=== PATIENT | female | born 1990 | race Two or more races ===

== ENCOUNTER 2023-03-28 19:13 | Outpatient (REF) | payer OTHER, SELFPAY ==
[2023-04-02 22:07] LABS: Age Gdln ACOG Testing Note (.); HPV Aptima Negative (Negative); IGP, Aptima HPV, rfx 16/18,45 Note (.)
== END 2023-03-28 19:14 | disposition home or self-care (01) ==
LOC: LAB 19:13
PROVIDERS: PCP Family Medicine; Visit Provider Obstetrics & Gynecology
DX: Z01.419 Encounter for gynecological examination (general) (routine) without abnormal findings (principal)
CPT/HCPCS: 87624; G0145

== ENCOUNTER 2024-04-08 19:25 | Outpatient (REF) | payer OTHER, SELFPAY | END 2024-04-08 19:26 | disposition home or self-care (01) | LOC: LAB 19:25 | PROVIDERS: PCP Family Medicine; Visit Provider Obstetrics & Gynecology | DX: Z01.419 Encounter for gynecological examination (general) (routine) without abnormal findings (principal) | CPT/HCPCS: 87624; 88175 ==

== ENCOUNTER 2025-05-27 20:12 | Outpatient (REF) | payer OTHER, SELFPAY ==
--- OUTSIDE RECORDS SUMMARY | 2025-05-27 20:16 | XMS_ITS | CCD ---
Author Organization [facility] Care Team Providers Care Director [employer] Name Role Phone SHEELA, DR CORDELL Crystal Attending Unavailable NADERER, DR CORDELL Crystal Consulting Unavailable NADERER, DR CORDELL Crystal Primary Care Unavailable DASIAERER, DR CORDELL Crystal Admitting Unavailable ALEXANDRA, DR BLUE Primary Care Unavailable ALEXANDRA, DR BLUE Admitting Unavailable ALEXANDRA, DR BLUE Attending Unavailable ALEXANDRA, DR BLUE Consulting Unavailable Marcy Romo Unavailable MIRZA MORRIS Attending Unavailable BRENNON PISANO Attending Unavailable KHORSAND MO, DEBRA Referring Unavailabl e KHORSAND MO, DEBRA Primary Care Unavailabl e ALIYA, BRENNON Attending Unavailable KHORSAND MO, DEBRA Referring Unavailabl e KHORSAND MO, DEBRA Primary Care Unavailabl e ALIYA, BRENNON Attending Unavailable KHORSAND MO, DEBRA Referring Unavailabl e KHORSAND MO, DEBRA Primary Care Unavailabl e ALIYA, BRENNON Attending Unavailable KHORSAND MO, DEBRA Referring Unavailabl e KHORSAND MO, DEBRA Primary Care Unavailabl e ALIYA BRENNON Attending Unavailable KHORSAND MO, DEBRA Referring Unavailabl e KHORSAND MO, DEBRA Primary Care Unavailabl e PISANO, BRENNON Attending Unavailable KHORSAND MO, DEBRA Referring Unavailabl e KHORSAND MO, DEBRA Primary Care Unavailabl e ALIYA, BRENNON Attending Unavailable KHORSAND MO, DEBRA Referring Unavailabl e KHORSAND MO, DEBRA Primary Care Unavailabl e ALIYA, BRENNON Attending Unavailable KHORSAND MO, DEBRA Referring Unavailabl e KHORSAND MO, DEBRA Primary Care Unavailabl e ALIYA, BRENNON Attending Unavailable KHORSAND MO, DEBRA Referring Unavailabl e KHORSAND MO, DEBRA Primary Care Unavailabl e ALIYA, BRENNON Attending Unavailable KHORSAND MO, DEBRA Referring Unavailabl e KHORSAND MO, DEBRA Primary Care Unavailabl e KHORSAND MO, DEBRA Primary Care Unavailabl e SETH GOTTLIEB Attending Unavailable ALIYA, BRENNON Attending Unavailable KHCLARKEAND MO, DEBRA Referring Unavailabl e KHORSAND MO, DEBRA Primary Care Unavailskyla e BRENNON PISANO Attending Unavailable KHORSAND MO, DEBRA Referring Unavailabl e KHORSAND MO, DEBRA Primary Care UnavailCordell Gomes MD Primary Care Provider Medications Current Medications Medication Drug Class(es) Dates Sig (Normalized) Sig (Original) amoxicillin 875 mg / clavulanate 125 mg oral tablet (1 source) Penicillin-class Antibacterial Start: 09-06-2023 take 1 tablet by mouth every twelve hours Amoxicillin-Pot Clavulanate 875-125 MG 1 tablet Orally every 12 hrs for 10 day(s) Sep, Active predniSONE 20 mg oral tablet (1 source) Start: 09-06-2023 take 1 tablet by mouth every twelve hours prednisone 20 MG 1 tablet Orally BID for 5 Sep, Active Completed/Discontinued Medications Medication Drug Class(es) Dates Sig (Normalized) Sig (Original) sulfamethoxazole 800 mg / trimethoprim 160 mg oral tablet (1 source) Dihydrofolate Reductase Inhibitor Antibacterial, Sulfonamide Antimicrobial Start: 07-16-2017 take 1 tablet by mouth every twelve hours Bactrim DS 800-160 MG 1 tablet Orally Twice a day for 10 day(s) Jul, Not-Taking/PRN Problems Problem Classification Problem Date Documented Date Episodic/Chronic Immunizations and screening for infectious disease (1 source) Encounter for screening for human papillomavirus (HPV); Translations: [ENC SCREENING HUMAN PAPILLOMAVIRUS] Onset: 03-28-2022 Episodic Nonspecific chest pain (3 sources) Other chest pain; Translations: [Chest pain, unspecified] Onset: 03-30-2025 Episodic Other screening for suspected conditions (not mental disorders or infectious disease) (4 sources) Encounter for screening for malignant neoplasm of cervix; Translations: [ENC SCREENING MALIG NEOPLASM CERV] Onset: 03-27-2022 Episodic Other upper respiratory infections (1 source) Acute maxillary sinusitis, unspecified Episodic Results Test Name Value Interpretation Reference Range Facility [facility] 03-30-2025 aPTT Coag (Bld) [Time] 28 s Normal 26-37 [facility] Comment on above: Performed By: #### P TT #### [facility] ([address] [address] VIR B-TYPE NATRIURETIC PEPTIDEon 03-30-2025 Natriuretic peptide B (Bld) [Mass/Vol] 28 pg/mL Normal <=100 [facility] Comment on above: Performed By: #### C BCA #### [facility] ([address] [address] VIR CBC WITH AUTO DIFFERENTIALon 03-30-2025 BASOPHILS ABSOLUTE COUNT (10*3/UL) BY AUTOMATED COUNT 0.1 10*3/uL Normal 0.0-0.2 [facility] Comment on above: Performed By: #### C BCA #### [facility] ([address] [address] VIR BASOPHILS RELATIVE PERCENT BY AUTOMATED COUNT 0.9 % Normal [facility] Comment on above: Performed By: #### C BCA #### [facility] ([address] [address] VIR CELLAVISION DIFFERENTIAL TYPE AUTOMATED DIFFERENTIAL Normal [facility] Comment on above: Performed By: #### C BCA #### [facility] ([address] [address] VIR Eosinophils (Bld) [#/Vol] 0.2 10*3/uL Normal 0.0-0.4 [facility] Comment on above: Performed By: #### C BCA #### [facility] ([address] [address] VIR EOSINOPHILS RELATIVE PERCENT BY AUTOMATED COUNT 1.9 % Normal [facility] Comment on above: Performed By: #### C BCA #### [facility] ([address] [address] VIR Erythrocyte distribution width (RBC) [Ratio] 13.4 % Normal 11.5-15 [facility] Comment on above: Performed By: #### C BCA #### [facility] ([address] [address] VIR Hematocrit (Bld) [Volume fraction] 41.1 % Normal 35-47 [facility] Comment on above: Performed By: #### C BCA #### [facility] ([address] [address] VIR Hemoglobin (Bld) [Mass/Vol] 14.0 g/dL Normal 11.7-15.5 [facility] Comment on above: Performed By: #### C BCA #### [facility] ([address] [address] VIR LYMPHOCYTES ABSOLUTE COUNT (10*3/UL) BY AUTOMATED COUNT 2.5 10*3/uL Normal 1.0-3.5 [facility] Comment on above: Performed By: #### C BCA #### [facility] ([address] [address] VIR LYMPHOCYTES RELATIVE PERCENT BY AUTOMATED COUNT 28.5 % Normal [facility] Comment on above: Performed By: #### C BCA #### [facility] ([address] [address] VIR MCH (RBC) [Entitic mass] 32.0 pg Normal 27-34 [facility] Comment on above: Performed By: #### C BCA #### [facility] ([address] [address] VIR MCHC (RBC) [Mass/Vol] 34.0 g/dL Normal 32-36 [facility] Comment on above: Performed By: #### C BCA #### [facility] ([address] [address] VIR MCV (RBC) [Entitic vol] 94 fL Normal 80-100 [facility] Comment on above: Performed By: #### C BCA #### [facility] ([address] [address] VIR MONOCYTES ABSOLUTE COUNT (10*3/UL) BY AUTOMATED COUNT 0.4 10*3/uL Normal 0.0-0.9 [facility] Comment on above: Performed By: #### C BCA #### [facility] ([address] [address] VIR MONOCYTES RELATIVE PERCENT BY AUTOMATED COUNT 5.1 % Normal [facility] Comment on above: Performed By: #### C BCA #### [facility] ([address] [address] VIR NEUTROPHILS ABSOLUTE COUNT BY AUTOMATED COUNT 5.6 10*3/uL Normal 1.5-6.6 [facility] Comment on above: Performed By: #### C BCA #### [facility] ([address] [address] VIR NEUTROPHILS RELATIVE PERCENT BY AUTOMATED COUNT 63.6 % Normal [facility] Comment on above: Performed By: #### C BCA #### [facility] ([address] [address] VIR Platelet mean volume (Bld) [Entitic vol] 11.1 fL Normal 7-12 [facility] Comment on above: Performed By: #### C BCA #### [facility] ([address] [address] VIR Platelets (Bld) [#/Vol] 276 10*3/uL Normal 150-450 [facility] Comment on above: Performed By: #### C BCA #### [facility] ([address] [address] VIR RBC COUNT 4.37 X10E12/L Normal 3.8-5.2 [facility] Comment on above: Performed By: #### C BCA #### [facility] ([facility]) [address] [place] [address] VIR WBC (Bld) [#/Vol] 8.9 10*3/uL Normal 4-11 [facility] Comment on above: Performed By: #### C BCA #### [facility] ([address] [place] [address] VIR COMPREHENSIVE METABOLIC PANE Brandon 03-30-2025 Albumin [Mass/Vol] 4.3 g/dL Normal 3.2-5.3 [facility] Comment on above: Performed By: #### C MP #### [facility] ([facility]) [facility] [place] [address] VIR ALP [Catalytic activity/Vol] 60 U/L Normal 39-130 [facility] Comment on above: Performed By: #### C MP #### [facility] ([address] [place] [address] VIR ALT [Catalytic activity/Vol] 21 U/L Normal <=31 [facility] Comment on above: Performed By: #### C MP #### [facility] ([address] [place] [address] VIR Anion gap [Moles/Vol] 6 mmol/L Normal 5-15 [facility] Comment on above: Performed By: #### C MP #### [facility] ([address] [place] [address] VIR AST [Catalytic activity/Vol] 18 U/L Normal <=41 [facility] Comment on above: Performed By: #### C MP #### [facility] ([place] [address] [place] [address] VIR Bilirubin [Mass/Vol] 0.4 mg/dL Normal 0.3-1.2 [facility] Comment on above: Performed By: #### C MP #### [facility] ([facility]) [address] [place] [address] [place] [address] VIR Calcium [Mass/Vol] 8.7 mg/dL Normal 8.5-10.5 [facility] Comment on above: Performed By: #### C MP #### [facility] ([address] [place] [address] VIR Chloride [Moles/Vol] 107 mmol/L Normal 98-109 [facility] Comment on above: Performed By: #### C MP #### [facility] ([address] [place] [address] VIR CO2 [Moles/Vol] 23 mmol/L Normal 22-32 [facility] Comment on above: Performed By: #### C MP #### [facility] ([address] [place] [address] VIR Creatinine [Mass/Vol] 0.52 mg/dL Normal 0.40-1.00 [facility] Comment on above: Result Comment: METH OD TRACEABLE TO IDMS STANDARD Performed By: #### C MP #### [facility] ([address] [place] [address] VIR EGFR (CKD-EPI) NON-RACE DEPENDENT >^90 Normal >=60 [facility] Comment on above: Result Comment: eGFR not reported due to non-numeric value for Creatinine. Reported eGFR is based on the CKD-EPI 2021 equation that does not use a race coefficient. Performed By: #### C MP #### [facility] ([address] [place] [address] VIR Glucose [Mass/Vol] 126 mg/dL High 65-99 [facility] Comment on above: Performed By: #### C MP #### [facility] ([address] [place] [address] VIR Potassium [Moles/Vol] 3.9 mmol/L Normal 3.5-5.0 [facility] Comment on above: Performed By: #### C MP #### [facility] ([address] [place] [address] VIR Protein [Mass/Vol] 7.3 g/dL Normal 6.0-8.0 [facility] Comment on above: Performed By: #### C MP #### [facility] ([address] [place] [address] VIR Sodium [Moles/Vol] 136 mmol/L Normal 134-146 [facility] Comment on above: Performed By: #### C MP #### [facility] ([address] [place] [address] VIR Urea nitrogen [Mass/Vol] 11 mg/dL Normal 5-23 [facility] Comment on above: Performed By: #### C MP #### [facility] ([address] [place] [address] VIR D-DIMERon 03-30-2025 D DIMER <^150 Normal 1-255 [facility] Comment on above: Result Comment: Resu lts <255 ng/mL DDU: The presensence of a VTE can safely be excluded with a negative D-Dimer result and Wells score. A negative result doesn't exclude the possibility of DIC. The test should be repeated along with other diagnostic tests if the patient's symptoms persist or worsen. Performed By: #### D DMR #### [facility] ([address] [place] [address] VIR LIPASEon 03-30-2025 Lipase [Catalytic activity/Vol] 30 U/L Normal 17-40 [facility] Comment on above: Performed By: #### L IPA #### [facility] ([address] [place] [address] VIR MAGNESIUMon 03-30-2025 Magnesium [Mass/Vol] 2.0 mg/dL Normal 1.8-2.6 [facility] Comment on above: Performed By: #### M G #### [facility] ([address] [place] [address] VIR POCT NURSING URINE MACROSCOP IC UAon 03-30-2025 BILIRUBIN CHIOMA Negative Normal Negative [facility] Comment on above: Performed By: #### N UM #### [facility] ([address] [place] [address] VIR BLOOD/HGB CHIOMA Moderate Abnormal Negative [facility] Comment on above: Performed By: #### N UM #### [facility] ([address] [place] [address] VIR GLUCOSE CHIOMA Negative Normal Negative [facility] Comment on above: Performed By: #### N UM #### [facility] ([address] [place] [address] VIR KETONES CHIOMA Negative Normal Negative [facility] Comment on above: Performed By: #### N UM #### [facility] ([address] [place] [address] VIR LEUKOCYTE ESTERASE CHIOMA Negative Normal Negative [facility] Comment on above: Performed By: #### N UM #### [facility] ([address] [place] [address] VIR NITRITE CHIOMA Negative Normal Negative [facility] Comment on above: Performed By: #### N UM #### [facility] ([address] [place] [address] VIR PH CHIOMA 7.0 Normal 5.0, 6.0, 6.5, 7.0, 7.5, 8.0, 8.5, 5.5 [facility] Comment on above: Performed By: #### N UM #### [facility] ([address] [place] [address] VIR PROTEIN CHIOMA Negative Normal Negative [facility] Comment on above: Performed By: #### N UM #### [facility] ([address] [place] [address] VIR SPECIFIC GRAVITY CHIOMA 1.015 Normal 1.010, 1.015, 1.020, 1.025 [facility] Comment on above: Performed By: #### N UM #### [facility] ([address] [place] [address] VIR UROBILINOGEN CHIOMA 0.2 E.U./dL Normal [facility] Comment on above: Performed By: #### N UM #### [facility] ([address] [place] [address] VIR PROTIME AND INRon 03-30-2025 INR 0.9 Normal 0.9-1.2 [facility] Comment on above: Performed By: #### P INR #### [facility] ([address] [place] [address] VIR PT Coag (PPP) [Time] 10.4 s Normal 9.8-13.2 [facility] Comment on above: Performed By: #### P INR #### [facility] ([address] [place] [address] VIR TROP I, HIGH SENSITIVITY 1 H OURon 03-30-2025 TROPONIN I, HIGH SENSITIVITY <^2 Normal <16 [facility] Comment on above: Performed By: #### C BCA #### [facility] ([address] [place] [address] VIR TROPONIN I, HIGH SENSITIVITY 0 HOURon 03-30-2025 TROPONIN I, HIGH SENSITIVITY <^2 Normal <16 [facility] Comment on above: Performed By: #### T NIHS0 #### [facility] ([place] [address] [place] [address] VIR XR CHEST 1 VWon 03-30-2025 XR CHEST 1 VW XR CHEST 1 VW XR CHEST 1 VW Clinical Information: chest pain Comparison: None. IMPRESSION: * Negative chest x-ray. Finalized by Ralph Gilbert MD on 03/30/2025 10:24 AM Normal [facility] CBC AUTO DIFFon 05-30-2022 BASO # 0.1 103/ul Normal 0.0-0.1 [facility] Comment on above: Performed By: #### C BC #### [facility] [address] [address] [address] Saul Johnston Basophils/100 WBC (Bld) 0.7 % Normal 0.2-2.0 [facility] Comment on above: Performed By: #### C BC #### [facility] [address] [address] [address] Saul Johnston EO # 0.3 103/ul Normal 0.0-0.7 [facility] Comment on above: Performed By: #### C BC #### [facility] [address] [place] [address] Dr. Saul Johnston Eosinophils/100 WBC (Bld) 2.7 % Normal 0.9-7.0 [facility] Comment on above: Performed By: #### C BC #### [facility] [address] [place] [address] Dr. Saul Johnston Erythrocyte distribution width (RBC) [Ratio] 13.0 % Normal 11.0-15.0 [facility] Comment on above: Performed By: #### C BC #### [facility] [address] [place] [address] Dr. Saul Johnston Hematocrit (Bld) [Volume fraction] 41.6 % Normal 36.0-48.0 [facility] Comment on above: Performed By: #### C BC #### [facility] [address] [place] [address] Dr. Saul Johnston Hemoglobin (Bld) [Mass/Vol] 13.4 g/dL Normal 12.0-16.0 [facility] Comment on above: Performed By: #### C BC #### [facility] [address] [place] [address] Dr. Saul Jonhston IG # 0.02 10e3/ul Normal 0.00-0.03 [facility] Comment on above: Performed By: #### C BC #### [facility] [address] [place] [address] Dr. Saul Johnston IG % 0.2 % Normal 0.0-0.5 [facility] Comment on above: Performed By: #### C BC #### [facility] [address] [place] [address] Dr. Saul Johnston LYMPH # 3.6 103/ul Normal 1.2-3.8 [facility] Comment on above: Performed By: #### C BC #### [facility] [address] [place] [address] Dr. Saul Johnston Lymphocytes/100 WBC (Bld) 35.5 % Normal 20.5-60.0 [facility] Comment on above: Performed By: #### C BC #### [facility] [address] [place] [address] Dr. Saul Johnston MANUAL DIFF REQ NO Normal [facility] Comment on above: Performed By: #### C BC #### [facility] [address] [place] [address] Dr. Saul Johnston MCH (RBC) [Entitic mass] 31.3 pg Normal 26.7-34.0 [facility] Comment on above: Performed By: #### C BC #### [facility] [address] [place] [address] Dr. Saul Johnston MCHC (RBC) [Mass/Vol] 32.2 g/dL Normal 29.9-35.2 [facility] Comment on above: Performed By: #### C BC #### [facility] [address] [place] [address] Dr. Saul Johnston MCV (RBC) [Entitic vol] 97.2 fL Normal 81.0-99.0 [facility] Comment on above: Performed By: #### C BC #### [facility] [address] [place] [address] Dr. Saul Johnston MONO # 0.6 103/ul Normal 0.3-0.8 [facility] Comment on above: Performed By: #### C BC #### [facility] [address] [place] [address] Dr. Saul Johnston Monocytes/100 WBC (Bld) 5.7 % Normal 1.7-12.0 [facility] Comment on above: Performed By: #### C BC #### [facility] [address] [place] [address] Dr. Saul Johnston NEUT # 5.6 103/ul Normal 1.4-6.5 [facility] Comment on above: Performed By: #### C BC #### [facility] [address] [place] [address] Dr. Saul Johnston Neutrophils/100 WBC (Bld) 55.2 % Normal 43.0-75.0 [facility] Comment on above: Performed By: #### C BC #### [facility] [address] [place] [address] Dr. Saul Johnston Platelet mean volume (Bld) [Entitic vol] 12.9 fL Normal 9.5-13.5 [facility] Comment on above: Performed By: #### C BC #### [facility] [address] [place] [address] Dr. Saul Johnston PLT 266 103/ul Normal 150-450 [facility] Comment on above: Performed By: #### C BC #### [facility] [address] [place] [address] Dr. Saul Johnston RBC 4.28 106/ul Normal 4.20-5.40 [facility] Comment on above: Performed By: #### C BC #### [facility] [address] [place] [address] Dr. Saul Johnston WBC 10.1 103/ul Normal 4.0-11.0 [facility] Comment on above: Performed By: #### C BC #### [facility] [address] [place] [address] Dr. Saul Johnston GLYCOHEMOGLOBIN A1Con 2021 ADA RECOMMENDATION SEE BELOW Normal [facility] Comment on above: Result Comment: ADA RECOMMENDED LIMIT 4.0 - 6.0 ADA THERAPEUTIC TARGET < 7.0 ACTION SUGGESTED > 7.0 Performed By: #### A 1C #### [facility] [address] [place] [address] Dr. Saul Johnston Glucose [Mass/Vol] 120 mg/dL Normal [facility] Comment on above: Performed By: #### A 1C #### [facility] [address] [address] [address] Saul Johnston HbA1c (Bld) [Mass fraction] 5.8 % Normal 4.5-6.2 [facility] Comment on above: Performed By: #### A 1C #### [facility] [address] [place] [address] Dr. Saul Johnston LIPID PROFILEon 05-30-2022 CHOL-HDL RATIO NORM SEE BELOW Normal [facility] Comment on above: Result Comment: 3.3 - 4.4 LOW RISK 4.4 - 7.1 AVERAGE RISK 7.1 - 11.0 MODERATE RISK >11.0 HIGH RISK Performed By: #### B MP, TSH, LIVER, LIPID #### [facility] [address] [address] [address] Saul Johnston Cholesterol [Mass/Vol] 170 mg/dL Normal <=200 [facility] Comment on above: Performed By: #### B MP, TSH, LIVER, LIPID #### [facility] [address] [place] [address] Dr. Saul Johnston Cholesterol in HDL [Mass/Vol] 36 mg/dL Critically low 40-60 [facility] Comment on above: Performed By: #### B MP, TSH, LIVER, LIPID #### [facility] [address] [address] [address] Saul Johnston Cholesterol in LDL [Mass/Vol] 114.4 mg/dL Normal [facility] Comment on above: Performed By: #### B MP, TSH, LIVER, LIPID #### [facility] [address] [place] [address] Dr. Saul Johnston Cholesterol.total/Cho lesterol in HDL [Mass ratio] 4.7 {ratio} Normal [facility] Comment on above: Performed By: #### B MP, TSH, LIVER, LIPID #### [facility] [address] [address] [address] Saul Johnston HDL NORMAL > or = 60 mg/dl - LO W CARDIOVASCULAR RISK <40 mg/dl - HIGH CARDIOVASCULAR RISK Normal [facility] Comment on above: Performed By: #### B MP, TSH, LIVER, LIPID #### [facility] [address] [address] [address] Saul Johnston LDL CALC NORMAL SEE BELOW Normal [facility] Comment on above: Result Comment: <100 mg/dl OPTIMAL 100 - 129 mg/dl NEAR OR ABOVE OPTIMAL 130 - 159 mg/dl BORDERLINE HIGH 160 - 189 mg/dl HIGH >190 mg/dl VERY HIGH Performed By: #### B MP, TSH, LIVER, LIPID #### [facility] [address] [address] [address] Saul Johnston Triglyceride [Mass/Vol] 98 mg/dL Normal <=150 [facility] Comment on above: Performed By: #### B MP, TSH, LIVER, LIPID #### [facility] [address] [address] [address] Saul Johnston VLDL CALC 19.6 mg/dL Normal [facility] Comment on above: Performed By: #### B MP, TSH, LIVER, LIPID #### [facility] [address] [address] [address] Saul Johnston LIVER PROFILEon 05-30-2022 Albumin [Mass/Vol] 3.9 g/dL Normal 3.4-5.0 [facility] Comment on above: Performed By: #### B MP, TSH, LIVER, LIPID #### [facility] [address] [address] [address] Saul Johnston Albumin/Globulin [Mass ratio] 1.1 {ratio} Normal [facility] Comment on above: Performed By: #### B MP, TSH, LIVER, LIPID #### [facility] [address] [address] [address] Saul Johnston ALP [Catalytic activity/Vol] 69 U/L Normal 46-116 [facility] Comment on above: Performed By: #### B MP, TSH, LIVER, LIPID #### [facility] [address] [place] [address] Dr. Saul Johnston ALT [Catalytic activity/Vol] 40 U/L Normal 14-59 [facility] Comment on above: Performed By: #### B MP, TSH, LIVER, LIPID #### [facility] [address] [place] [address] Dr. Saul Johnston AST [Catalytic activity/Vol] 19 U/L Normal 15-37 [facility] Comment on above: Performed By: #### B MP, TSH, LIVER, LIPID #### [facility] [address] [place] [address] Dr. Saul Johnston BILI, CONJUGATED 0.1 mg/dL Normal 0.0-0.2 [facility] Comment on above: Performed By: #### B MP, TSH, LIVER, LIPID #### [facility] [address] [place] [address] Dr. Saul Johnston Bilirubin [Mass/Vol] 0.3 mg/dL Normal 0.2-1.0 [facility] Comment on above: Performed By: #### B MP, TSH, LIVER, LIPID #### [facility] [address] [place] [address] Dr. Saul Johnston Globulin (S) [Mass/Vol] 3.6 g/dL Normal [facility] Comment on above: Performed By: #### B MP, TSH, LIVER, LIPID #### [facility] [address] [place] [address] Dr. Saul Johnston Protein [Mass/Vol] 7.5 g/dL Normal 6.4-8.2 [facility] Comment on above: Performed By: #### B MP, TSH, LIVER, LIPID #### [facility] [address] [place] [address] Dr. Saul Johnston PROF CHEM 8 (BAS METB)on Anion gap [Moles/Vol] 13.5 mmol/L Normal [facility] Comment on above: Performed By: #### B MP, TSH, LIVER, LIPID #### [facility] [address] [address] [address] Saul Johnston Calcium [Mass/Vol] 8.9 mg/dL Normal 8.5-10.1 [facility] Comment on above: Performed By: #### B MP, TSH, LIVER, LIPID #### [facility] [address] [address] [address] Saul Johnston Chloride [Moles/Vol] 103 mmol/L Normal 98-107 [facility] Comment on above: Performed By: #### B MP, TSH, LIVER, LIPID #### [facility] [address] [address] [address] Saul Johnston CO2 [Moles/Vol] 26.1 mmol/L Normal 21.0-32.0 [facility] Comment on above: Performed By: #### B MP, TSH, LIVER, LIPID #### [facility] [address] [place] [address] Dr. Saul Johnston Creatinine [Mass/Vol] 0.57 mg/dL Normal 0.55-1.02 [facility] Comment on above: Performed By: #### B MP, TSH, LIVER, LIPID #### [facility] [address] [place] [address] Dr. Saul Johnston EGFR-AF [place] >60 Normal >=60 [facility] Comment on above: Performed By: #### B MP, TSH, LIVER, LIPID #### [facility] [address] [place] [address] Dr. Saul Johnston EGFR-NON AF [place] >60 Normal >=60 [facility] Comment on above: Performed By: #### B MP, TSH, LIVER, LIPID #### [facility] [address] [place] [address] Dr. Saul Johnston Glucose [Mass/Vol] 94 mg/dL Normal 74-106 [facility] Comment on above: Performed By: #### B MP, TSH, LIVER, LIPID #### [facility] [address] [place] [address] Dr. Saul Johnston Potassium [Moles/Vol] 3.6 mmol/L Normal 3.5-5.1 [facility] Comment on above: Performed By: #### B MP, TSH, LIVER, LIPID #### [facility] [address] [address] [address] Saul Johnston Sodium [Moles/Vol] 139 mmol/L Normal 136-145 [facility] Comment on above: Performed By: #### B MP, TSH, LIVER, LIPID #### [facility] [address] [address] [address] Saul Johnston Urea nitrogen [Mass/Vol] 8.0 mg/dL Normal 7.0-18.0 [facility] Comment on above: Performed By: #### B MP, TSH, LIVER, LIPID #### [facility] [address] [place] [address] Dr. Saul Johnston Urea nitrogen/Creatinine [Mass ratio] 14.0 mg/mg Normal [facility] Comment on above: Performed By: #### B MP, TSH, LIVER, LIPID #### [facility] [address] [place] [address] Dr. Saul Johnston TSHon 05-30-2022 TSH 1.665 uIU/mL Normal 0.358-3.740 [facility] Comment on above: Performed By: #### B MP, TSH, LIVER, LIPID #### [facility] [address] [place] [address] Dr. Saul Johnston PAP ACOG PANEL 2: 30 to 65on 03-31-2022 . . Normal [facility] Comment on above: Result Comment: Perf ormed at: WB Performed By: #### [id number] #### [facility] [address] [place] [address] Dr. Saul Johnston Age Gdln ACOG Testing 30-65 [facility] Comment on above: Performed By: #### [id number] #### [facility] [address] [place] [address] Dr. Saul Johnston DIAGNOSIS: Comment Normal [facility] Comment on above: Result Comment: NEGA TIVE FOR INTRAEPITHELIAL LESION OR MALIGNANCY. CELLULAR CHANGES ASSOCIATED WITH INFLAMMATION ARE PRESENT. Performed at: WB Performed By: #### [id number] #### [facility] [address] [place] [address] Dr. Saul Johnston HPV Aptima Negative Normal Negative [facility] Comment on above: Result Comment: This nucleic acid amplification test detects fourteen high-risk HPV types (16,18,31,33,35,39,45,51,52,56,58,59,66,68) without differentiation. Performed at: =G Performed By: #### [id number] #### [facility] [address] [place] [address] Dr. Saul Johnston Methodology: CTIM Normal [facility] Comment on above: Result Comment: The Thin Prep(R) Mail Manager was unable to read this specimen. Therefore a manual review was performed. Performed at: WB Performed By: #### [id number] #### [facility] [address] [place] [address] Dr. Saul Johnston Note: Comment Normal [facility] Comment on above: Result Comment: The Pap smear is a screening test designed to aid in the detection of premalignant and malignant conditions of the uterine cervix. It is not a diagnostic procedure and should not be used as the sole means of detecting cervical cancer. Both false-positive and false-negative reports do occur. . Performed at: WB Performed By: #### [id number] #### [facility] [address] [place] [address] Dr. Saul Johnston Performed by: Comment Normal [facility] Comment on above: Result Comment: Holli Larson Target Worker (ASCP) Performed at: WB Performed By: #### [id number] #### [facility] [address] [place] [address] Dr. Saul Johnston Specimen adequacy: Comment Normal [facility] Comment on above: Result Comment: Sati sfactory for evaluation. Endocervical and/or squamous metaplastic cells (endocervical component) are present. Performed at: WB Performed By: #### [id number] #### [facility] [address] [place] [address] Dr. Saul Johnston Vital Signs Date Time Vital Sign Value Performing Clinician Facility 05-27-2025 13:38-0400 Body mass index (BMI) [Ratio] 31.18 kg/m2 Nita CHAIREZ Work Phone: [facility] 05-27-2025 13:38-0400 Body weight 74.84 kg Nita Wellington PA Work Phone: [facility] 05-27-2025 13:38-0400 Diastolic blood pressure 82 mm[Hg] Nita Hicksey PA Work Phone: [facility] 05-27-2025 13:38-0400 Systolic blood pressure 124 mm[Hg] Nita Hicksey PA Work Phone: [facility] 09-06-2023 16:30-0500 Body height 157.48 cm Marcy Romo Other [facility] Other 09-06-2023 16:30-0500 Body mass index (BMI) [Ratio] 32.04 kg/m2 Marcy Romo Other [facility] Other 09-06-2023 16:30-0500 Body temperature 97.6 [degF] Marcy Romo Other [facility] Other 09-06-2023 16:30-0500 Body weight 79.47 kg Marcy Romo Other [facility] Other 09-06-2023 16:30-0500 Diastolic blood pressure 80 mm[Hg] Marcy Romo Other [facility] Other 09-06-2023 16:30-0500 Respiratory rate 18 /min Marcy Romo Other [facility] Other 09-06-2023 16:30-0500 SaO2% (BldA) [Mass fraction] 98 % Marcy Romo Other [facility] Other 09-06-2023 16:30-0500 Systolic blood pressure 122 mm[Hg] Marcy Romo Other [facility] Other Encounters Encounter Date Encounter Type Care Provider Facility Start: 05-27-2025 End: 05-27-2025 Bamboo flowsheet Nita CHAIREZ Work Phone: [facility] Start: 05-27-2025 End: 05-27-2025 Bamboo flowsheet Nita CHAIREZ Work Phone: [facility] Start: 05-27-2025 End: 05-27-2025 Patient encounter procedure Nita CHAIREZ Work Phone: [facility] Start: 05-27-2025 End: 05-27-2025 Periodic preventive med est patient 18-39 yrs Nita CHAIREZ Work Phone: [facility] Comment on above: Well woman exam with routine gynecological exam Start: 05-14-2025 End: 05-14-2025 [facility] Start: 04-28-2025 End: 04-28-2025 [facility] Start: 03-30-2025 End: 03-30-2025 Emergency department patient visit DEBRA PAIZ [facility] Start: 03-26-2025 End: 03-26-2025 [facility] Start: 03-09-2025 End: 03-09-2025 [facility] Start: 02-24-2025 End: 02-24-2025 [facility] Start: 01-12-2025 End: 01-12-2025 [facility] Start: 12-15-2024 End: 12-15-2024 [facility] Start: 11-20-2024 End: 11-20-2024 [facility] Start: 10-29-2024 End: 10-29-2024 ambulatory [facility] Start: 10-01-2024 End: 10-01-2024 ambulatory [facility] Start: 09-11-2024 End: 09-11-2024 ambulatory [facility] Start: 08-13-2024 End: 08-13-2024 ambulatory [facility] Start: 04-08-2024 End: 04-08-2024 ambulatory MIRZA MORRIS Not Available Start: 09-06-2023 End: 09-06-2023 ambulatory Marcy Romo Other [facility] Other Start: 09-06-2023 Office outpatient ne w 30 minutes Marcy Romo [facility] Start: 06-01-2022 Encounter for genera l adult medical examination without abnormal findings DR CORDELL COKER [facility] Start: 05-30-2022 End: 05-31-[address] CORDELL COKER Facility:[facility] Start: 05-30-2022 End: 05-31-2022 Encounter for general adult medical examination without abnormal findings DR CORDELL COKER Facility:[facility] Start: 03-27-2022 End: 03-27-[address] MIRZA MORRIS Facility:[facility] Procedures Date Procedure Procedure Detail Performing Clinician Start: 04-08-2024 Microscopic observat ion [Identifier] in Cervix by Cyto stain Nita CHAIREZ Work Phone: Plan of Treatment Date Care Activity Detail Author Start: 04-08-2027 Screening for malign ant neoplasm of cervix [facility] Start: 05-27-2025 End: 05-27-2025 Patient encounter procedure 05/27/2025 1:30 PM EDT Procedure Visit [facility] HERRMANN [address] [place] [id number] Nita Morales PA [address] [place] [address] Arrived [facility] HERR[facility] Comment on above: Arrived Start: 05-04-2025 Influenza vaccination Influenza Vacc ine (#1) [facility] Start: 2018 Screening for malign ant neoplasm of cervix HPV/Cotest [facility] Cytology Cervical or vaginal smear or scraping study Pap Smear Pathology and Cytology Routine Well woman exam with routine gynecological exam Ordered: 05/27/2025 [facility] Work Phone: Comment on above: Ordered: 05/27/2025 Human papilloma viru s DNA [Presence] in Unspecified specimen by Probe with amplification HPV DNA probe, amplified Microbiology Routine Well woman exam with routine gynecological exam Ordered: 05/27/2025 [facility] Comment on above: Ordered: 05/27/2025 Payers Date Payer Category Payer Unknown [id number] 2022 Private Health Insurance [employer] [id number] 1988 Unknown [id number] 2..[id number]. 593 1988 Unknown [id number] 2.16840.1.053493.3.579.2. 593 1988 Unknown [id number] 2.16840.1.877985.3.579.2. 1259 1988 Unknown [id number] 2.16.840.1.723491.3.579.2. 1286 1988 Unknown [id number] 2.16.840.1.281592.3.579.2. 1286 1988 Unknown [id number] 2.16.840.1.502897.3.579.2. 1286 1988 Unknown [id number] 2.16.840.1.686450.3.579.2. 1286 1988 Unknown [id number] 2.16.840.1.114716.3.579.2. 1286 1988 Unknown [id number] 2.16.840.1.086349.3.579.2. 1286 1988 Unknown [id number] 2.16.840.1.697414.3.579.2. 1286 1988 Unknown [id number] 2.16.840.1.463774.3.579.2. 1286 1988 Unknown [id number] 2.16.840.1.129333.3.579.2. 1286 1988 Unknown [id number] 2.16.840.1.893826.3.579.2. 1286 1988 Unknown [id number] 2.16.840.1.840024.3.579.2. 1286 1988 Unknown [id number] 2.16.840.1.539259.3.579.2. [facility] 1988 Unknown [id number] 2.16.840.1.496494.3.579.2. 1286 1959 Unknown [id number] Social History Date Type Detail Facility Unknown if ever smoked [facility] Other Sex Assigned At [facility] Other Tobacco smoking status MTIS Tobacco smoking consumption unknown [facility] Start: 1988 Sex assigned at Female [facility] Start: 03-21-2023 Gender identity Identifies as female gender (finding) [facility] History of Present illness Narrative 05-27-2025 June Hastings NP - 05/27/2025 1:30 PM EDT Note Date & Type Note Facility 05-27-2025 History of Presen t illness Narrative Reason for Appointment: Patient ID: Mary Siegel is a 34 y.o. female who presents for Well Women Visit Patient presents today for Annual Exam. MEDICATIONS No current outpatient medications ALLERGIES No Known Allergies PROBLEMS Active Ambulatory Problems Diagnosis Date Noted No Active Ambulatory Problems Resolved Ambulatory Problems Diagnosis Date Noted No Resolved Ambulatory Problems Past Medical History: Diagnosis Date Decreased libido Fatigue HISTORY PAST MEDICAL HISTORY SOCIAL HISTORY Past Medical History: Diagnosis Date Decreased libido Fatigue Social History Tobacco Use Smoking status: Not on file Smokeless tobacco: Not on file Substance Use Topics Alcohol use: Not on file Drug use: Not on file FAMILY HISTORY Family History Problem Relation Name Age of Onset Heart disease Mother Diabetes Mother Hypertension Mother Heart disease Father Diabetes Paternal Grandmother Heart disease Paternal Grandfather SURGICAL HISTORY Past Surgical History: Procedure Laterality Date PAP SMEAR 12/18/2018 WNL TUBAL LIGATION REVIEW OF SYSTEMS Review of Systems: Review of Systems Constitutional: Negative. HENT: Negative. Eyes: Negative. Respiratory: Negative. Cardiovascular: Negative. Gastrointestinal: Negative. Genitourinary: Negative. Musculoskeletal: Negative. Skin: Negative. Neurological: Negative. Psychiatric/Behavioral: Negative. All other systems reviewed and are negative. Hematological: Negative. Endocrine: Negative. Allergic/Immunologic: Negative. OBJECTIVE Objective: Physical Exam Constitutional: Appearance: Normal appearance. She is well-developed. Genitourinary: Vulva normal. Breasts: Breasts are soft. Right: Normal. Left: Normal. Cardiovascular: Rate and Rhythm: Normal rate and regular rhythm. Pulmonary: Effort: Pulmonary effort is normal. Breath sounds: Normal breath sounds. Abdominal: General: Bowel sounds are normal. There is no distension. Palpations: Abdomen is soft. Tenderness: There is no abdominal tenderness. There is no guarding or rebound. Musculoskeletal: General: No swelling. Normal range of motion. Right lower leg: No edema. Left lower leg: No edema. Neurological: Mental Status: She is alert and oriented to person, place, and time. Skin: General: Skin is warm and dry. Psychiatric: Mood and Affect: Mood normal. Behavior: Behavior normal. Vitals and nursing note reviewed. Exam conducted with a wire coiler machine operator present. Vitals: Estimated body mass index is 31.18 kg/m as calculated from the following: Height as of 03/28/23: 5' 1 . Weight as of this encounter: 165 lb. BP: 124/82 Patient's last menstrual period was 05/22/2025 (exact date). ASSESSMENT & PLAN ICD-10-CM 1. Well woman exam with routine gynecological exam Z01.419 Pap Smear HPV DNA probe, amplified Annual Exam: Patient presents today for an annual exam. Patient states she is doing well and has no complaints. Pap was obtained without difficulty. Orders Placed This Encounter Procedures HPV DNA probe, amplified Follow Up: Patient is to return in one year for annual unless needed otherwise. Documented by June Hastings NP on behalf of: CONTRERAS Noland documented in this encounter [facility] Evaluation note 09-06-2023 Note Date & Type Note Facility 09-06-2023 Evaluation note Encounter Date Diagnosis Assessment Notes Sep, Acute non-recurrent maxillary sinusitis (ICD-10 - J01.00) No testing performed at this time. Discussed diagnosis with patient in detail. Will treat today with antibiotic. Reviewed allergies and recent antibiotic use. Advised to take medications as prescribed, reviewed side effects of steroid, take with food and plenty of water, finish entire course. Encouraged supportive care as directed, push fluids and rest, may use Tylenol as needed for fever/discomfor t, cool mist humidifier, OTC Flonase, OTC Mucinex D. Patient to follow up with PCP in 2-3 days if symptoms do not improve. Immediate eval if SOB, difficulty breathing, chest pain, dizziness, or other concerning symptoms. Patient verbalizes understanding and is agreeable to treatment plan [facility] Other Evaluation note Note Date & Type Note Facility Evaluation note Diagnosis Well woman exam with routine gynecological exam Routine gynecological examination documented in this encounter [facility] History general Narrative - Reported Note Date & Type Note Facility History general Narrative - Reported Type Surgical History tubal ligation [facility] Other Summary Purpose Family History No Family History Records FoundNo Family History Records FoundNo Family History Records Found Advance Directives No Advanced Directives Records FoundNo Advanced Directives Records FoundNo Advanced Directives Records Found Additional Source Comments INFORMATION SOURCE (unrecogn ized section and content) DATE CREATED AUTHOR 06/05/2022 [facility] DATE CREATED AUTHOR 'S ORGANIZ ATION 04/10/2024 [facility] EPIC DATE CREATED AUTHOR AUTHOR'S NANCY CRUZ 05/17/2025 [facility] REASON FOR VISIT (unrecogniz ed section and content) Reason Comments Well Women Visit Care Teams (unrecognized sec tion and content) Director Global Market Research Relationship Specialty Start Date End Date Cordell Coker MD PCP - General Family Medicine 03/28/23 Director Global Market Research Relationship Specialty Start Date End Date Cordell Coker MD PCP - General Family Medicine 03/28/23 FOR RECORDS PERTAINING TO PATIENTS WHO ARE OR HAVE BEEN ENROLLED IN A CHEMICAL DEPENDENCY/SUBSTANCEABUSE PROGRAM, SOME INFORMATION MAY BE OMITTED. This clinical summary was aggregated from multiple sources. Caution should be exercised in using it in the provision of clinical care. This summary normalizes information from multiple sources, and as a consequence, information in this document may materially change the coding, format and clinical context of patient data. In addition, data may be omitted in some cases. CLINICAL DECISIONS SHOULD BE BASED ON THE PRIMARY CLINICAL RECORDS. [employer] [facility]. provides no warranty or guarantee of the accuracy or completeness of information in this document.
[2025-06-04 15:09] LABS: Age Gdln ACOG Testing Note (.); IGP, Aptima HPV, rfx 16/18,45 Note (.)
== END 2025-05-27 20:13 | disposition home or self-care (01) ==
LOC: LAB 20:12
PROVIDERS: PCP Family Medicine; Visit Provider Physician Assistant
DX: Z01.419 Encounter for gynecological examination (general) (routine) without abnormal findings (principal)
CPT/HCPCS: 87624; 88175